=== PATIENT | male | born 1990 | race African-American/Black ===

== ENCOUNTER 2022-04-12 12:14 | Emergency (ER) | payer MEDICAID ==
[~2022-04-12] VITALS: Ht 177.8 cm; Wt 91.0 kg
[2022-04-12 12:32] VITALS: BP 147/84
[2022-04-12] MEDS ORDERED: CEPH500C2 MT (14:59)
== END 2022-04-12 16:00 | disposition home or self-care (01) ==
LOC: ER 12:14
DX: Z48.00 Encounter for change or removal of nonsurgical wound dressing (principal); J45.909 Unspecified asthma, uncomplicated
CPT/HCPCS: 99281